=== PATIENT | female | born 2000 | race Caucasian/White ===

== ENCOUNTER 2020-08-11 12:20 | Emergency (ER) | payer SELFPAY ==
[~2020-08-11] VITALS: Ht 157.5 cm; Wt 61.4 kg
[2020-08-11 12:30] VITALS: BP 113/66; PULSE 85; TEMP 98.9
== END 2020-08-11 14:00 | disposition home or self-care (01) ==
LOC: COL.ER 12:20
DX: J06.9 Acute upper respiratory infection, unspecified (principal); F17.200 Nicotine dependence, unspecified, uncomplicated; Z20.822 Contact with and (suspected) exposure to COVID-19; Z88.8 Allergy status to other drugs, medicaments and biological substances